=== PATIENT | male | born 1990 | race Caucasian/White ===

== ENCOUNTER 2017-10-21 18:07 | Inpatient (IN) | payer BC ==
[~2017-10-21] VITALS: Ht 180.3 cm; Wt 71.8 kg
[2017-10-21 18:12] VITALS: Ht 180.3 cm; Wt 71.8 kg
[2017-10-21 19:48] LABS: BASOPHIL % 0.8 % (0-2); PLATELET COUNT 145 x10^3mcL (130-400); RED CELL DISTRIBUTION WIDTH 13.4 % (11.5-14.5)
[2017-10-21 20:02] LABS: CALCIUM 8.6 mg/dL (8.5-10.1); CARBON DIOXIDE 25.9 mmol/L (21-32); CHLORIDE SERUM 106 mmol/L (98-107); CREATININE SERUM 0.8 mg/dL (0.7-1.3); GFR1 > 60 mL/min; GLUCOSE SERUM 96 mg/dL (74-106); POTASSIUM SERUM 3.3 mmol/L (3.5-5.1); SODIUM SERUM 139 mmol/L (136-145)
[2017-10-21 20:06] LABS: ALBUMIN 3.8 g/dL (3.4-5.0); ALKALINE PHOSPHATASE 52 U/L (46-116); ALT/SGPT 15 U/L (16-63); AST/SGOT 10 U/L (15-37); BILIRUBIN TOTAL 1.1 mg/dL (0.20-1.00); TOTAL PROTEIN, SERUM 6.7 g/dL (6.4-8.2)
[2017-10-21 22:45] VITALS: BP 106/65
[2017-10-21 23:05] LABS: T3 TOTAL 1.24 ng/mL
[2017-10-21 23:25] LABS: MAGNESIUM 1.6 mg/dL (1.8-2.4); PHOSPHOROUS 1.7 mg/dL (2.5-4.9)
[2017-10-21 23:31] LABS: FREE T4 1.16 ng/dL (0.76-1.46); FREE THYROXINE INDEX 2.8 ug/dL (1.4-4.5); T4(THYROXINE) 8.6 ug/dL (4.7-13.3)
[2017-10-21 23:33] LABS: CHOLESTEROL/HDL RATIO 2.4
[2017-10-22 00:07] VITALS: BP 95/55
[2017-10-22 05:47] VITALS: BP 94/52
[2017-10-22 06:37] LABS: CALCIUM 7.9 mg/dL (8.5-10.1); CARBON DIOXIDE 25.3 mmol/L (21-32); CHLORIDE SERUM 109 mmol/L (98-107); CREATININE SERUM 0.8 mg/dL (0.7-1.3); GFR1 > 60 mL/min; GLUCOSE SERUM 99 mg/dL (74-106); POTASSIUM SERUM 3.6 mmol/L (3.5-5.1); SODIUM SERUM 142 mmol/L (136-145)
[2017-10-22 06:51] LABS: RED CELL DISTRIBUTION WIDTH 13.6 % (11.5-14.5)
[2017-10-22 07:11] LABS: BASOPHIL % 0 % (0-2); PLATELET COUNT 120 x10^3mcL (130-400)
[2017-10-22 08:46] LABS: AMPHETAMINE QUAL UR NONE DETECTED (See below)
[2017-10-22 09:00] VITALS: BP 96/55
[2017-10-22 10:16] LABS: UA SPECIFIC GRAVITY 1.015 (1.005-1.035); microscopic required? YES; urine erythrocyte TRACE (NEGATIVE)
[2017-10-22 17:34] VITALS: BP 94/52
[2017-10-22 22:59] VITALS: BP 120/62
[2017-10-23 06:00] VITALS: BP 102/60
[2017-10-23 07:06] LABS: RED CELL DISTRIBUTION WIDTH 13.2 % (11.5-14.5)
[2017-10-23 07:08] LABS: BASOPHIL % 0 % (0-2); PLATELET COUNT 128 x10^3mcL (130-400)
[2017-10-23 07:17] LABS: CALCIUM 8.5 mg/dL (8.5-10.1); CARBON DIOXIDE 24.1 mmol/L (21-32); CHLORIDE SERUM 105 mmol/L (98-107); CREATININE SERUM 0.7 mg/dL (0.7-1.3); GFR1 > 60 mL/min; GLUCOSE SERUM 149 mg/dL (74-106); POTASSIUM SERUM 3.8 mmol/L (3.5-5.1); SODIUM SERUM 139 mmol/L (136-145)
[2017-10-23 08:49] VITALS: BP 101/57
[2017-10-23] MEDS ORDERED: FLAGYL500 MG PO (12:41)
[2017-10-23] MEDS ORDERED: CIPRO500 MG PO (12:41)
[2017-10-23] MEDS ORDERED: NORCO1 TA2 PO (12:42)
== END 2017-10-23 15:06 | disposition home or self-care (01) | DRG 343 ==
LOC: ED 18:07 → MU 22:01
PROVIDERS: Emergency Medicine; Family Medicine; Surgery
PROC: 0DTJ4ZZ Resection of Appendix, Percutaneous Endoscopic Approach (ICD-10-PCS; principal; 2017-10-22 19:00)
DX: K35.80 Unspecified acute appendicitis (principal); E87.6 Hypokalemia; E80.6 Other disorders of bilirubin metabolism
CPT/HCPCS: 83880; 84439; J1170; J2270; J2405; J2543; J3010; J3490; J7030; Q0092